=== PATIENT | male | born 1950 | race Caucasian/White ===

== ENCOUNTER 2016-11-15 14:26 | Emergency (ER) | payer MEDICARE, MEDICAID ==
[~2016-11-15] VITALS: Ht 167.6 cm; Wt 72.6 kg
[2016-11-15] MEDS ORDERED: CYAN100071 PO (15:28)
[2016-11-15] MEDS ORDERED: FERR-58 PO (15:28)
[2016-11-15] MEDS ORDERED: VITA1TAB PO (15:28)
[2016-11-15] MEDS ORDERED: LOSA50TA3 PO (15:28)
[2016-11-15] MEDS ORDERED: IV NS 0.9% 500 ML IV ONE (16:26)
[2016-11-15] MEDS ORDERED: IV SET PRIMARY 1 EA INFUS.SET MC ONE (16:26)
[2016-11-15 16:28] LABS: BASOPHILS % (AUTO) 0.2 % (0.0-2.0); DIFF TOTAL % 100 %; EOSINOPHILS % (AUTO) 0.2 % (0.0-6.0); HEMATOCRIT 28 % (39-51); HEMOGLOBIN 9.1 g/dL (13.5-17.5); LYMPHOCYTES # (AUTO) 1.6 /CMM (0.8-4.8); LYMPHOCYTES % (AUTO) 15.7 % (20.0-44.0); MEAN CORPUSCULAR HEMOGLOBIN 31 PG (26.0-33.0); MEAN CORPUSCULAR HGB CONC 33 g/dl (31.0-36.0); MEAN CORPUSCULAR VOLUME 92 fL (80-96); MONOCYTES # (AUTO) 0.3 /CMM (0.1-1.30); MONOCYTES % (AUTO) 3.4 % (2.0-12.0); NEUTROPHILS # (AUTO) 8.3 /CMM (1.8-8.9); NEUTROPHILS % (AUTO) 80.5 % (43.0-81.0); PLATELET COUNT (AUTO) 272 /CMM (150-450); RED BLOOD CELL COUNT(AUTO) 2.99 MIL/uL (4.5-6.0); WHITE BLOOD COUNT (AUTO) 10.2 K/uL (4.3-11.0)
[2016-11-15] MEDS ORDERED: IV NS 0.9% 500 ML BAG IV ONE (16:30)
[2016-11-15 16:39] LABS: ANION GAP 17 (5-14); CARBON DIOXIDE 24 mmol/L (21-32); CHLORIDE 106 mmol/L (98-107); GFR 33 mL/min (>60); GLUCOSE 104 mg/dL (74-106); SODIUM SERUM 143 mmol/L (136-145); UREA NITROGEN, BLOOD 24 mg/dL (7-18)
[2016-11-15 16:45] LABS: ALANINE AMINOTRANSFERASE 36 U/L (12-78); ALBUMIN 4.1 g/dL (3.4-5.0); ASPARTATE AMINOTRANSFERASE 23 U/L (15-37); BILIRUBIN,DIRECT 0.1 mg/dL (0.0-0.2); BILIRUBIN,TOTAL 0.4 mg/dL (0.2-1.0); INDIRECT BILIRUBIN 0.3 mg/dL (0.0-1.1); TOTAL PROTEIN, SERUM 7.4 g/dL (6.4-8.2)
[2016-11-15 16:47] LABS: TROPONIN I < 0.017 ng/mL (0.00-0.056)
[2016-11-15 16:56] LABS: INR 1.04 (0.87-1.13); PROTHROMBIN TIME 10.9 SECS (9.5-12.7)
[2016-11-15 17:55] VITALS: BP 145/75
== END 2016-11-15 17:55 | disposition home or self-care (01) ==
LOC: ER 14:29
DX: I12.9 Hypertensive chronic kidney disease with stage 1 through stage 4 chronic kidney disease, or unspecified chronic kidney disease (principal); K62.5 Hemorrhage of anus and rectum; R53.1 Weakness; D64.9 Anemia, unspecified
CPT/HCPCS: 36415; 71010; 80048; 80076; 84484; 85025; 85730; 86850; 93005; 96360; 99285; A4606; J7040 ×2; Z7610